=== PATIENT | female | born 1995 | race African-American/Black ===

== ENCOUNTER 2023-03-23 08:15 | Outpatient (AMB) | payer OTHER, SELFPAY ==
[2023-03-23 08:16] VITALS: BP 108/70; BMI 35.9
--- NOTE | 2023-03-23 08:16 | MHC.PC.OV ---
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 Intake Note: New patient establishing care Furnace Liner Required: No Accompanied by: Self / Same As Patient Allergies No Known Allergies [No Known Allergies*] Allergy (Verified 03/23/23 08:27) Medication List - Last Reconciled 03/23/23 by Selene Napoles MD benztropine mg PO hydroxyzine HCl 25 mg PO TID lithium carbonate mg PO paliperidone palmitate (Invega Sustenna) mg IM trazodone 100 mg PO BEDTIME PRN Tobacco use date assessed: 03/23/23 Dental Screening Dental Screen Date: 03/23/23 Did you have a dental visit in the last 12 months?: Yes Did you have a dental problem in the last 6 months where you did not have access to dental care?: No Was dental information given to patient?: Patient has dentist HPI HPI Comments History of Present Illness Details This is a 27-year-old female with bipolar depression that comes for her physical exam. She follows with [facility] in [place]. No chest pain or shortness of breath. Compliant with medications. She is obese with a BMI of 35.9 and was advised to do diet and exercise to reach BMI goal less than 30. [facility] Surgical History History of Family History (Updated 03/23/23 @ 08:33 by Selene Napoles MD) Mother Mental health disorder Father No problems noted. Family/Other Substance use disorder Sister Diabetes mellitus Social History Housing: House Alcohol intake: former Patient Tobacco Use Status: Former Tobacco user Tobacco use type: Cigarette Smoked in Last 30 Days: No e-Cigarette/Vaping Use: Currently Using Second Hand Smoke Exposure: No service: No Current occupational status: unemployed Cognitive needs: No Hearing needs: No Vision needs: No Questionnaire PHQ-9 Over the last 2 weeks, how often have you been bothered by any of the following problems? 1. Little interest or pleasure in doing things: several days 2. Feeling down, depressed, or hopeless: several days 3. Trouble falling or staying asleep, or sleeping too much: not at all 4. Feeling tired or having little energy: nearly every day 5. Poor appetite or overeating: several days 6. Feeling bad about yourself - or that you are a failure or have let yourself or your family down: several days 7. Trouble concentrating on things, such as reading the newspaper or watching television: more than half the days 8. Moving or speaking so slowly that other people could have noticed. Or the opposite - being so fidgety or restless that you have been moving around a lot more than usual: not at all 9. Thoughts that you would be better off or of hurting yourself in some way: not at all Total score: 9 Depression Screening Interpretation: Positive Depression Screening Follow-up: Existing condition, In treatment and Community Mental Health Worker F/U Depression Screening Done: Yes 90664 - PHQ-9 Billing: Yes Source: Developed by Drs. Stephen Benitez, Melinda Moreno, Kp Ly and colleagues, with an educational daljit from [employer]. Thrive Questionnaire Date Thrive assessed: 03/23/23 I am a: Patient What is your living situation today?: I have a steady place to live Within the past 12 months, did the food you bought not last and you didn't have the money to get more?: Never true Within the past 12 months, did you worry whether your food would run out before you got money to buy more?: Never true Do you have trouble paying for medicines?: No Do you have trouble getting transportation to medical appointments?: No Do you have trouble paying your heating and electricity bill?: No Do you have trouble taking care of your child, family member or friend?: No Do you have trouble with day-to-day activities such as bathing, preparing meals, shopping, managing finances, etc.?: No Are you currently unemployed and looking for a job?: No Are you interested in more education?: No Please select the resources that you would like help with: None Currently or been in a relationship where the following occur: no concerns reported AUDIT C Alcohol Use Questionnaire (AUDIT-C) 1. How often do you have a drink containing alcohol?: Never Total Score: 0 Score Reviewed/Action Taken: No LAWRENCE-7 AMB Questionnaire LAWRENCE-7 Date LAWRENCE - 7 assessed: 03/23/23 Feeling nervous, anxious, or on edge: 0 = Not at all Not being able to stop or control worryin = Not at all Worrying too much about different things: 1 = Several days Trouble relaxin = Not at all Being so restless that it is hard to sit still: 0 = Not at all Becoming easily annoyed or irritable: 1 = Several days Feeling afraid as if something awful might happen: 0 = Not at all Total LAWRENCE-7 score (0-4 normal; 5-9 mild; 10-14 moderate; 15-21 severe): 2 Source: Developed by Drs. Stephen Benitez, Melinda Moreno, Kp Ly and colleagues, with an educational daljit from [employer]. LAWRENCE-7 Assessment Billing LAWRENCE-7 Assessment Tool: LAWRENCE-7 Assessment 26542 Review of Systems Const All systems reviewed & are unremarkable except as noted in HPI and below Eyes Reports no additional complaints, Denies change in vision and Denies other visual disturbances Card Denies chest pain at rest, Denies chest pain with activity, Denies edema, Denies irregular heart rhythm, Denies claudication, Denies dyspnea, Denies dyspnea on exertion, Denies orthopnea, Denies paroxysmal nocturnal dyspnea and Denies slow heart rate Resp Denies cough, Denies dyspnea and Denies dyspnea on exertion GI Denies abdominal pain, Denies change in bowel habits, Denies excessive flatus, Denies nausea and Denies vomiting Denies urinary incontinence, Denies urinary hesitancy and Denies urinary urgency Musc Denies abnormal gait, Denies atrophy, Denies deformity and Denies limited range of motion Skin/Breast Denies bleeding lesions, Denies changing lesions and Denies rash Neuro Denies abnormal gait, Denies behavioral changes, Denies confusion and Denies lack of coordination Psych Denies behavioral changes and Denies confusion Physical exam (Primary Care) Vital Signs: Last Vital Signs BP 108/70 03/23/23 08:16 BMI result Body Mass Index 35.9 Tobacco/Smoking Status: Tobacco use Status Tobacco use date assessed 03/23/23 03/23/23 08:25 Patient Tobacco Use Status Former Tobacco user 03/23/23 08:25 Tobacco use type Cigarette 03/23/23 08:25 e-Cigarette/Vaping Use Currently Using 03/23/23 08:25 PHQ-9: PHQ-9 Score PHQ-9: Total score 9 03/23/23 08:35 Depression Screening Interpretation: Positive Depression Screening Follow-up: Existing condition, In treatment and Community Mental Health Worker F/U Thrive Assessment: Date of Thrive Assessment Date Thrive assessed 03/23/23 03/23/23 08:25 Currently or been in a relationship where the following occur: no concerns reported Const General: No confusion Orientation/consciousness: patient oriented x3 and No confusion HENMT Head: Yes normal to inspection, Yes normocephalic and Yes atraumatic Ears: external ears normal Eyes General: appearance normal, both eyes and all related structures Eyelids: Yes eyelids normal Conjunctivae: conjunctivae normal Neck Neck: Yes normal visual inspection and Yes supple Resp Effort & Inspection: normal respiratory effort Auscultation: clear to auscultation bilaterally Cardio Jugular venous distension: no JVD Rate: regular rate Rhythm: regular rhythm Heart sounds: S1 normal heart sound present and S2 normal heart sound present GI Inspection: Yes normal to inspection Palpation (GI): Soft to palpation and nontender Auscultation: normal bowel sounds Skin General skin exam: no rashes or lesions noted Neuro General: patient oriented x3, no focal motor deficits and No confusion Extrem General: Yes full ROM Psych Appearance: grossly normal Office Procedures Flu Questionnaire Does the patient have a severe egg allergy?: No Immunizations flu vacc [id number] 6mos up(PF) 60 mcg(15 mcgx4)/0.5 mL IM syringe Performing Provider: Selene Napoles MD Performing Location: [facility] [place] [facility] Documented (not given) by: LYNDA Hernadez on 03/23/23 08:36 Reason Not Given: Not Given Boostrix Tdap 2.5 Lf unit-8 mcg-5 Lf/0.5 mL intramuscular syringe Performing Provider: Selene Napoles MD Performing Location: [facility] [place] [facility] Administered by: LYNDA Hernadez on 03/23/23 08:42 Dose Route Admin Location Dispensed Lot Number Expiration Date NDC Rx Specialist 0.5 mL IM Left Deltoid 0.5 mL [id number] 07/09/25 31635-787-31 [employer] VIS Given Date VIS Provided VIS Publication Date 03/23/23 Single Vaccine 20 Eligibility Eligibility Date Funding Source Not [facility] Eligible 03/23/23 Private Assessment and Plan Assessment & Plan (1) Physical exam: Code(s): Z00.00 - Encounter for general adult medical examination without abnormal findings Plan: Repeat in a year. (2) Bipolar depression: Code(s): F31.9 - Bipolar disorder, unspecified Plan: Continue lithium. Follow-up with psychiatry. Orders: Orders Influenza [id number] Immunization Today Z23 - Encounter for immunization [place] Today F31.9 - Bipolar disorder, unspecified Lipid Panel Today E66.9 - Obesity, unspecified, E78.5 - Hyperlipidemia, unspecified Comprehensive [place]. Panel Fast Today E66.9 - Obesity, unspecified TDaP Immunization Today Z23 - Encounter for immunization Thyroid Stimulating Hormone Today E66.9 - Obesity, unspecified Complete Blood Count Auto Diff Today E66.9 - Obesity, unspecified Coding Level of Care Code New Pt Prev Care 18-39yr([id number] Diagnoses Physical exam Z00.00 Bipolar depression F31.9 Additional Codes LAWRENCE-7 Assessment Billing - LAWRENCE-7 Assessment Tool: LAWRENCE-7 Assessment 10117 ([id number]) Time Spent (min) 31
== END 2023-03-23 08:49 | disposition home or self-care (01) ==
PROVIDERS: PCP Internal Medicine; Visit Provider Internal Medicine
DX: Z23 Encounter for immunization (principal); Z00.00 Encounter for general adult medical examination without abnormal findings; F31.9 Bipolar disorder, unspecified
CPT/HCPCS: 90471; 90472; 90686; 90715; 99385

== ENCOUNTER 2024-01-27 14:19 | Outpatient (AMB) | payer OTHER, SELFPAY ==
[2024-01-27 14:25] VITALS: BP 126/72; PULSE 79; O2SAT 98; BMI 34.5
--- NOTE | 2024-01-27 14:25 | MHC.PC.OV ---
Vital Signs 01/27/24 14:25 Height 5 ft 7 in Weight 220 lb BMI 34.5 BP 126/72 Blood Pressure Location Lt brachial Position Sitting Pulse 79 Pulse Source Pulse Oximeter Pulse Oximetry (%) 98 Oxygen Delivery Method Room Air Intake Visit Reasons: Rsched from 01/24- Hand Rash --Insurance is active Physician/Ophthalmologist Required: No Accompanied by: Self / Same As Patient Allergies No Known Allergies [No Known Allergies*] Allergy (Verified 01/27/24 14:25) Medication List - Last Reconciled 01/27/24 by Leida Sanders PA-C benztropine mg PO hydroxyzine HCl 25 mg PO TID lithium carbonate mg PO paliperidone palmitate (Invega Sustenna) mg IM trazodone 100 mg PO BEDTIME PRN triamcinolone acetonide 0.5% 1 appl topical BID Tobacco use date assessed: 03/23/23 Dental Screening Dental Screen Date: 03/23/23 HPI Rsched from 01/24- Hand Rash --Insurance is active HPI Details 28-year-old female past medical history of bipolar depression last seen by Dr. Dietz March 2023 coming in for acute problem. Patient states for the last 2 weeks she has been having a dry irritated hand rash on both hands. Initially it began when she burned herself on hot water in the rash appeared afterwards since spread to both hands. She has been using lotion intermittently for the rash. She also mentioned for several months she has been having left-sided knee pain primarily when walking up the stairs and sometimes feels like her knee is unsteady and may give out on her. [facility] Surgical History History of Family History (Updated 03/23/23 @ 08:33 by Selene Napoles MD) Mother Mental health disorder Father No problems noted. Family/Other Substance use disorder Sister Diabetes mellitus Social History Housing: House Alcohol intake: former Patient Tobacco Use Status: Former Tobacco user Tobacco use type: Cigarette e-Cigarette/Vaping Use: Currently Using Second Hand Smoke Exposure: No service: No Current occupational status: unemployed Cognitive needs: No Hearing needs: No Vision needs: No Questionnaire Thrive Questionnaire Date Thrive assessed: 03/23/23 LAWRENCE-7 AMB Questionnaire LAWRENCE-7 Date LAWRENCE - 7 assessed: 03/23/23 Source: Developed by Drs. Stephen Benitez, Melinda Moreno, Kp Ly and colleagues, with an educational daljit from [employer]. Review of Systems Const Denies body aches, Denies chills and Denies fever(s) Eyes Reports no additional complaints ENT Reports no additional complaints Card Denies chest pain, Denies leg edema, Denies lightheadedness and Denies dyspnea Resp Denies dyspnea GI Reports no additional complaints Reports no additional complaints Musc Details: Left knee pain Skin/Breast Reports as per HPI Physical exam (Primary Care) Vital Signs: Last Vital Signs Pulse 79 01/27/24 14:25 BP 126/72 01/27/24 14:25 Pulse Ox 98 01/27/24 14:25 Oxygen Delivery Method Room Air 01/27/24 14:25 BMI result Body Mass Index 34.5 Tobacco/Smoking Status: Tobacco use Status Tobacco use date assessed 03/23/23 01/27/24 14:29 Patient Tobacco Use Status Former Tobacco user 01/27/24 14:29 Tobacco use type Cigarette 01/27/24 14:29 e-Cigarette/Vaping Use Currently Using 01/27/24 14:29 Thrive Assessment: Date of Thrive Assessment Date Thrive assessed 03/23/23 01/27/24 14:29 Const General: cooperative, healthy appearing, comfortable and no acute distress Orientation/consciousness: patient oriented x3 HENMT Head: Yes normocephalic Ears: hearing grossly normal bilaterally General nose exam: Normal external nose present Eyes General: appearance normal, both eyes and all related structures Conjunctivae: conjunctivae normal Neck Neck: Yes full ROM and Yes no lymphadenopathy Resp Effort & Inspection: normal respiratory effort Auscultation: clear to auscultation bilaterally, no crackles, no rales, no rhonchi and no wheezes Cardio Rate: regular rate Rhythm: regular rhythm Skin Other: Dry, thickened, scaly rash dorsal aspect of bilateral hands without areas of open skin General skin exam: no rashes or lesions noted Neuro General: patient oriented x3 Gait exam (Neuro): Normal gait present Extrem Other: No pain to palpation over left knee. Intact strength, sensation and pulses in bilateral lower extremities General: Yes normal to inspection, Yes full ROM and No edema Psych Affect: normal affect Attitude: cooperative Insight: Good insight present (Psych) Judgement: Good judgement present (Psych) Coding Level of Care Code Est Pt Level 3 (30682) Diagnoses Left knee pain M25.562 Obesity (BMI 35.0-39.9 without comorbidity) E66.9 Dermatitis L30.9 Assessment & Plan Assessment & Plan (1) Left knee pain: Code(s): M25.562 - Pain in left knee Category: Medical Plan: Patient complaining of left knee pain that feels occasionally on stable we will order for x-ray for further evaluation. Declines physical therapy at this time advised to use ibuprofen and Tylenol as needed for pain. (2) Obesity (BMI 35.0-39.9 without comorbidity): Code(s): E66.9 - Obesity, unspecified Category: Medical Plan: Healthy diet and regular exercise is encouraged. (3) Dermatitis: Code(s): L30.9 - Dermatitis, unspecified Category: Medical Plan: Rash looks consistent with atopic dermatitis. Advised patient to use steroid cream 1-2 times per day until the rash clears or up until 2 weeks. Advised patient to use Vaseline or Aquaphor on the hands at night to help moisturize. If rash worsens or does not improve we will refer to Dermatology. Plan This note was constructed using voice recognition software. While every effort has been made to ensure accuracy and driver education road instructor, still areas may have been included sometimes these areas may affect the content or meeting of the given symptoms. Total time spent caring for the patient today was twenty minutes. This includes time spent before the visit reviewing the chart, time spent during the visit, and time spent after the visit and documentation. Orders: Orders XR knee LT 3V Today M25.562 - Pain in left knee Medications: New triamcinolone acetonide 0.5% 1 appl topical BID 15 grams 1RF
== END 2024-01-27 14:55 | disposition home or self-care (01) ==
PROVIDERS: PCP Internal Medicine
DX: M25.562 Pain in left knee (principal); E66.9 Obesity, unspecified; L30.9 Dermatitis, unspecified; Z68.34 Body mass index [BMI] 34.0-34.9, adult

== ENCOUNTER → 2024-01-27 14:19 | Outpatient (BNVA) | payer OTHER, SELFPAY | PROVIDERS: PCP Internal Medicine | DX: M25.562 Pain in left knee (principal); E66.9 Obesity, unspecified; L30.9 Dermatitis, unspecified | CPT/HCPCS: 99212 ==

== ENCOUNTER 2024-03-24 14:02 | Outpatient (AMB) | payer OTHER, SELFPAY ==
[2024-03-24 14:14] VITALS: BP 116/80; BMI 34.1
--- NOTE | 2024-03-24 14:14 | A.OFFPC_ITS ---
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 Accompanied by: Self / Same As Patient Allergies No Known Allergies [No Known Allergies*] Allergy (Verified 03/24/24 14:42) Medication List - Last Reconciled 03/24/24 by Selene Napoles MD benztropine mg PO hydroxyzine HCl 25 mg PO TID lithium carbonate mg PO quetiapine 50 mg PO BEDTIME quetiapine ER 400 mg PO BEDTIME Tobacco use date assessed: 03/24/24 Dental Screening Dental Screen Date: 03/24/24 Did you have a dental visit in the last 12 months?: Yes Did you have a dental problem in the last 6 months where you did not have access to dental care?: No Was dental information given to patient?: Patient has dentist HPI HPI Comments History of Present Illness Details The patient is a 28-year-old female presenting for her physical exam. She has a complex medical history including bipolar disorder, psychosis, obesity, abdominal pain, back pain, and knee pain. The patient is currently on benztropine, hydroxyzine, lithium, and Seroquel for mental health management. The Seroquel is acknowledged to contribute to increased hunger, making weight loss challenging. Despite this, the patient has successfully lost weight from approximately 240 lbs to 218 lbs, primarily through fasting. Abdominal pain has been persistent, though sporadic, and is undefined in relation to meals or specific activities. Back pain is localized to the lower back, occurring independently of leg pain, and is not consistently provoked by activity. Knee pain is noted on the left side. The onset of severe pain episodes began a few years ago. The patient has a history of but denies chest pain and shortness of breath. A family history of bipolar disorder is noted. The patient reports depression, anxiety, and instances of asthma managed with cream acquired from urgent care visits. The patient is up-to-date with vaccinations, having received a Tdap vaccine last year, and an upcoming OBGYN appointment is scheduled for April. The patient smokes vapes and reports cessation of traditional smoking. - Weight management through fasting and cycling. - Up-to-date with Tdap vaccination (last year). - Scheduled Pap smear appointment in Apr ru. - Discussed use of regular hand lotion f or dry skin. [facility] Surgical History History of Family History Mother Mental health disorder Father No problems noted. Family/Other Substance use disorder Sister Diabetes mellitus Social History Housing: House Alcohol intake: former Patient Tobacco Use Status: Former Tobacco user Tobacco use type: Cigarette e-Cigarette/Vaping Use: Currently Using Second Hand Smoke Exposure: No service: No Current occupational status: unemployed Cognitive needs: No Hearing needs: No Vision needs: No Questionnaire PHQ-9 Over the last 2 weeks, how often have you been bothered by any of the following problems? 1. Little interest or pleasure in doing things: several days 2. Feeling down, depressed, or hopeless: several days 3. Trouble falling or staying asleep, or sleeping too much: several days 4. Feeling tired or having little energy: several days 5. Poor appetite or overeating: several days 6. Feeling bad about yourself - or that you are a failure or have let yourself or your family down: several days 7. Trouble concentrating on things, such as reading the newspaper or watching television: not at all 8. Moving or speaking so slowly that other people could have noticed. Or the opposite - being so fidgety or restless that you have been moving around a lot more than usual: not at all 9. Thoughts that you would be better off or of hurting yourself in some way: several days Total score: 7 Depression Screening Interpretation: Positive Depression Screening Follow-up: Existing condition, In treatment, Community Mental Health Worker F/U and Follow- up Visit Requested Depression Screening Done: Yes 50271 - PHQ-9 Billing: Yes Source: Developed by Drs. Stephen Benitez, Melinda Moreno, Kp Ly and colleagues, with an educational daljit from [employer]. Thrive Questionnaire Date Thrive assessed: 03/24/24 I am a: Patient What is your living situation today?: I have a steady place to live Within the past 12 months, did the food you bought not last and you didn't have the money to get more?: Sometimes True Within the past 12 months, did you worry whether your food would run out before you got money to buy more?: Sometimes True Do you have trouble paying for medicines?: No Do you have trouble getting transportation to medical appointments?: No Do you have trouble paying your heating and electricity bill?: No Do you have trouble taking care of your child, family member or friend?: I choose not to answer this question Do you have trouble with day-to-day activities such as bathing, preparing meals, shopping, managing finances, etc.?: No Are you currently unemployed and looking for a job?: No Are you interested in more education?: I choose not to answer this question Please select the resources that you would like help with: Housing/Detention Currently or been in a relationship where the following occur: I choose not to answer THRIVE Score: 2 AUDIT C Alcohol Use Questionnaire (AUDIT-C) 1. How often do you have a drink containing alcohol?: Monthly or less 2. How many drinks containing alcohol do you have on a typical day when you are drinking?: 1 or 2 3. How often do you have six or more drinks on one occasion?: Never Total Score: 1 LAWRENCE-7 AMB Questionnaire LAWRENCE-7 Date LAWRENCE - 7 assessed: 03/24/24 Feeling nervous, anxious, or on edge: 1 = Several days Not being able to stop or control worryin = Not at all Worrying too much about different things: 2 = More than half the days Trouble relaxin = More than half the days Being so restless that it is hard to sit still: 2 = More than half the days Becoming easily annoyed or irritable: 2 = More than half the days Feeling afraid as if something awful might happen: 2 = More than half the days Total LAWRENCE-7 score (0-4 normal; 5-9 mild; 10-14 moderate; 15-21 severe): 11 Source: Developed by Drs. Stephen Benitez, Melinda Moreno, Kp Ly and colleagues, with an educational daljit from [employer]. LAWRENCE-7 Assessment Billing LAWRENCE-7 Assessment Tool: LAWRENCE-7 Assessment 38626 Review of Systems Const All systems reviewed & are unremarkable except as noted in HPI and below Card Denies chest pain at rest, Denies chest pain with activity, Denies edema, Denies irregular heart rhythm, Denies claudication, Denies dyspnea, Denies dyspnea on exertion, Denies orthopnea, Denies paroxysmal nocturnal dyspnea and Denies slow heart rate Resp Denies cough, Denies dyspnea and Denies dyspnea on exertion GI Denies abdominal pain, Denies change in bowel habits, Denies excessive flatus, Denies nausea and Denies vomiting Denies urinary incontinence, Denies urinary hesitancy and Denies urinary urgency Musc Reports back pain and Reports arthralgias Psych Reports anxiety and Reports depression Physical exam (Primary Care) Vital Signs: Last Vital Signs BP 116/80 03/24/24 14:14 BMI result Body Mass Index 34.1 BMI Assessment/Plan discussion: High BMI High, discussed plan: lifestyle, weight reduction, dietary and physical activity Tobacco/Smoking Status: Tobacco use Status Tobacco use date assessed 03/24/24 03/24/24 14:25 Patient Tobacco Use Status Former Tobacco user 03/24/24 14:18 Tobacco use type Cigarette 03/24/24 14:18 e-Cigarette/Vaping Use Currently Using 03/24/24 14:18 PHQ-9: PHQ-9 Score PHQ-9: Total score 7 03/24/24 14:44 Depression Screening Interpretation: Positive Depression Screening Follow-up: Existing condition, In treatment, Community Mental Health Worker F/U and Follow- up Visit Requested Thrive Assessment: Date of Thrive Assessment Date Thrive assessed 03/24/24 03/24/24 14:25 Currently or been in a relationship where the following occur: I choose not to answer [facility] Head: Yes normal to inspection, Yes normocephalic and Yes atraumatic Ears: external ears normal Eyes General: appearance normal, both eyes and all related structures Eyelids: Yes eyelids normal Conjunctivae: conjunctivae normal Neck Neck: Yes normal visual inspection and Yes supple Resp Effort & Inspection: normal respiratory effort Auscultation: clear to auscultation bilaterally Cardio Jugular venous distension: no JVD Rate: regular rate Rhythm: regular rhythm Heart sounds: S1 normal heart sound present and S2 normal heart sound present GI Inspection: Yes normal to inspection Palpation (GI): Soft to palpation and nontender Auscultation: normal bowel sounds Skin General skin exam: no rashes or lesions noted Neuro General: no focal motor deficits Extrem General: Yes full ROM Psych Appearance: grossly normal Office Procedures Flu Questionnaire Does the patient have a severe egg allergy?: No Immunizations Fluarix Triv [id number] (PF) 45 mcg (15 mcg x 3)/0.5 mL IM syringe Performing Provider: Selene Napoles MD [facility] Documented (not given) by: LYNDA Hernadez on 03/24/24 14:26 Reason Not Given: Patient Refused Coding Level of Care Code Est Pt Level 4 (48634) Est Pt Prev Care 18-39y(41999) Diagnoses Physical exam Z00.00 Bipolar depression F31.9 Psychosis F29 Abdominal pain R10.9 Lumbar pain M54.50 Left knee pain M25.562 Additional Codes LAWRENCE-7 Assessment Billing - LAWRENCE-7 Assessment Tool: LAWRENCE-7 Assessment 15395 ([id number]) PHQ-9 - 85923 - PHQ-9 Billing: Yes ([id number]) Time Spent (min) 38 Assessment & Plan Assessment & Plan (1) Physical exam: Code(s): Z00.00 - Encounter for general adult medical examination without abnormal findings Category: Medical (2) Bipolar depression: Code(s): F31.9 - Bipolar disorder, unspecified Category: Medical (3) Psychosis: Code(s): F29 - Unspecified psychosis not due to a substance or known physiological condition Category: Medical (4) Abdominal pain: Code(s): R10.9 - Unspecified abdominal pain Category: Medical (5) Lumbar pain: Code(s): M54.50 - Low back pain, unspecified Category: Medical (6) Left knee pain: Code(s): M25.562 - Pain in left knee Category: Medical Plan - Continue psychiatric medications as prescribed by psychiatry. - Recommend x-rays of the lower back and left knee to assess pain. - Order an ultrasound of the abdomen to evaluate unexplained pain. - Obtain blood work to assess cholesterol and glucose levels, requiring 8-hour fasting prior. - Advise the patient on glucose and cholesterol monitoring related to overall wellness and weight management. - Discussed potential link between vaping and throat irritation. Patient was informed and verbally consented to the use of an ambient scribe for clinic note documentation during this visit. I discussed with the patient the importance of maintaining current psychiatric treatment and acknowledged her weight loss efforts. We talked about the potential effects of Seroquel on hunger and weight gain. I recommended obtaining x-rays for both the lower back and the left knee to explore the origin of the pain and ordered an abdominal ultrasound due to unresolved abdominal discomfort. I clarified the need for fasting blood work to evaluate lipid and glucose levels, emphasizing the importance of monitoring these parameters given the patient's medical history and weight changes. We also talked about the throat irritation likely linked to vaping and suggested reducing exposure. Orders: Orders Influenza [id number] Immunization Today Z23 - Encounter for immunization XR lumbar spine 2-3V Today M54.50 - Low back pain, unspecified XR knee LT 2V Today M25.562 - Pain in left knee Thyroid Stimulating Hormone Today F31.9 - Bipolar disorder, unspecified US abdomen complete Today R10.9 - Unspecified abdominal pain Comprehensive Tyler. Panel Fast Today Z00.00 - Encounter for general adult medical examination without abnormal findings Lipid Panel Today Z00.00 - Encounter for general adult medical examination without abnormal findings Complete Blood Count Auto Diff Today R10.9 - Unspecified abdominal pain Patient Instructions: - Continue prescribed psychiatric medications consistently. - Proceed with ordered x-rays and ultrasound within the next three months. - Schedule blood work after an 8-hour fasting period. - Use regular hand lotions to alleviate skin dryness. - Consider reducing or quitting vaping to alleviate throat irritation. - Return for follow-up discussions as needed. - Continue lifestyle modifications including cycling and fasting for weight management.
== END 2024-03-24 15:03 | disposition home or self-care (01) ==
PROVIDERS: PCP Internal Medicine; Visit Provider Internal Medicine
DX: Z00.00 Encounter for general adult medical examination without abnormal findings (principal); F31.9 Bipolar disorder, unspecified; F29 Unspecified psychosis not due to a substance or known physiological condition; R10.9 Unspecified abdominal pain; M54.50 Low back pain, unspecified; M25.562 Pain in left knee

== ENCOUNTER → 2024-03-24 14:02 | Outpatient (BNVA) | payer OTHER, SELFPAY | PROVIDERS: PCP Internal Medicine; Visit Provider Internal Medicine | DX: Z00.00 Encounter for general adult medical examination without abnormal findings (principal); F31.9 Bipolar disorder, unspecified; E66.9 Obesity, unspecified; R10.9 Unspecified abdominal pain; M54.9 Dorsalgia, unspecified; F29 Unspecified psychosis not due to a substance or known physiological condition; M54.50 Low back pain, unspecified; M25.562 Pain in left knee; Z28.21 Immunization not carried out because of patient refusal | CPT/HCPCS: 96127; 99212; 99395 ==

== ENCOUNTER 2024-04-19 09:41 | Outpatient (REF) | payer OTHER, SELFPAY ==
--- NOTE | ~2024-04-19 | XR_ITS ---
CLINICAL HISTORY: M54.50 - Low back pain, unspecified 3 views lumbar spine Comparison: None Findings: There is mild straightening of the normal lumbar lordosis. No acute fractures or dislocation. No significant degenerative change. IMPRESSION: No acute findings. This document has been electronically signed by: Angel Akhtar MD, PHD on 04/20/2024 05:25:54
--- NOTE | ~2024-04-19 | XR_ITS ---
CLINICAL HISTORY: M25.562 - Pain in left knee 2 view left knee Comparison: None Findings: Bones intact. No dislocations. No significant loss of joint space, osteophytes, or erosions. No joint effusion. No radiopaque foreign body. IMPRESSION: 1. No acute findings. This document has been electronically signed by: Angel Akhtar MD, PHD on 04/20/2024 05:26:05
--- NOTE | ~2024-04-19 | US_ITS ---
CLINICAL HISTORY: R10.9 - Unspecified abdominal pain US abdomen complete Comparison: None Findings: Mildly prominent pancreatic duct measuring up to 3 mm. The aorta and inferior vena cava are normal caliber. Liver measures 16.7 cm in length and demonstrates increased echogenicity. There is no intrahepatic bile duct dilatation. The common duct is 3 mm in diameter. The gallbladder is normal. There is no sonographic James sign. The main portal vein is antegrade. The right kidney is 11 cm in length. The left kidney is 10 cm in length. Unremarkable kidneys without hydronephrosis. The spleen is normal. Spleen measures 9.5 cm in length. No ascites. IMPRESSION: Hepatic steatosis. Mild prominence of the pancreatic duct. This document has been electronically signed by: Merna Hanna MD on 04/20/2024 09:26:09
== END 2024-04-19 09:42 | disposition home or self-care (01) ==
LOC: HO.US 09:41
PROVIDERS: PCP Internal Medicine; Visit Provider Internal Medicine
DX: R10.9 Unspecified abdominal pain (principal); M54.50 Low back pain, unspecified; M25.562 Pain in left knee
CPT/HCPCS: 72100; 73560; 76700

== ENCOUNTER → 2024-04-19 09:45 | Outpatient (BNV) | payer OTHER, SELFPAY | PROVIDERS: PCP Internal Medicine; Visit Provider General Practice | DX: K76.0 Fatty (change of) liver, not elsewhere classified (principal); K86.89 Other specified diseases of pancreas; M54.50 Low back pain, unspecified; M25.562 Pain in left knee | CPT/HCPCS: 72100; 73560; 76700 ==

== ENCOUNTER 2024-08-05 11:58 | Outpatient (AMB) | payer OTHER, SELFPAY ==
--- NOTE | 2024-08-05 12:04 | A.OFFVIS_ITS ---
Vital Signs 08/05/24 12:17 Height 5 ft 7 in Weight 220 lb BMI 34.5 BP 116/62 Blood Pressure Location Rt brachial Position Sitting Pulse 78 Pulse Source Pulse Oximeter Pulse Oximetry (%) 98 Oxygen Delivery Method Room Air Intake Visit Reasons: SCHERER Intake Note: ESTABLISHED PATIENT for abd pain eval. Pt reminded of labs. No results currently. [facility]. Pt comments that she did report to [facility] to attempt to have them drawn, however; they did not receive the orders as intended. CC; C.O. epigastric pain, GERD, dysphagia, and mild CIC. Pt denies any additional sx. Pt reports onset within the last 1-2 years gradually. Has gotten worse over the last few months. Technician Preventative Medicine Required: No Accompanied by: Self / Same As Patient Allergies No Known Allergies [No Known Allergies*] Allergy (Verified 08/05/24 12:09) HPI HPI SCHERER: Details: 28-year-old female with past medical history of SCHERER, abdominal pain, dermatitis, bipolar, dilation of pancreatic duct is here today for initial consultation. Patient was sent to us by her PCP for elevation in her liver enzymes. Abdominal ultrasound was done in April that showed hepatic steatosis and prominence of pancreatic duct. Patient reports occasional epigastric pain, postprandial abdominal bloating, acid reflux. Patient is reporting that does symptoms are happening occasionally. Depending on what she eats. Patient denies any nausea or vomiting. Patient reports occasional dysphagia, dyspepsia without odynophagia. Reports to have occasional constipation. Denies any melena, hematochezia. Not on any particular diet at this time. [facility] Surgical History History of Family History Mother Mental health disorder Father No problems noted. Family/Other Substance use disorder Sister Diabetes mellitus Social History Housing: House Alcohol intake: former Patient Tobacco Use Status: Former Tobacco user Tobacco use type: Cigarette e-Cigarette/Vaping Use: Currently Using Second Hand Smoke Exposure: No service: No Current occupational status: unemployed Cognitive needs: No Hearing needs: No Vision needs: No Review of Systems Const Denies weight gain and Denies weight loss ENT Reports no additional complaints, Denies dysphagia and Denies odynophagia Card Reports no additional complaints Resp Reports no additional complaints GI Reports abdominal pain, Denies belching, Denies melena, Reports bloating, Denies change in bowel habits, Reports constipation (Occasional), Denies dysphagia, Denies excessive flatus, Denies dyspepsia, Denies heartburn, Denies diarrhea, Denies loose stools, Denies nausea, Denies odynophagia and Denies vomiting Reports no additional complaints Musc Reports no additional complaints Neuro Reports no additional complaints Psych Reports no additional complaints Endo Reports no additional complaints Physical Exam Vital Signs: Last Vital Signs Pulse 78 08/05/24 12:17 BP 116/62 08/05/24 12:17 Pulse Ox 98 08/05/24 12:17 Oxygen Delivery Method Room Air 08/05/24 12:17 BMI result Body Mass Index 34.5 Const General: healthy appearing, no acute distress and well developed Nutritional Appearance: well nourished and obese Orientation/consciousness: patient oriented x3 Resp Effort & Inspection: normal respiratory effort, able to speak in complete sentences, no tracheal deviation and symmetric chest movement Auscultation: clear to auscultation bilaterally Cardio Rate: regular rate GI Inspection: Yes normal to inspection, No distended and Yes obesity Palpation (GI): Soft to palpation, not firm, nontender and No hepatosplenomegaly present Auscultation: normal bowel sounds General: Yes no CVA tenderness Back/Spine/Pelvis Back: no CVA tenderness Skin General skin exam: elasticity normal, turgor normal and dry skin Neuro General: patient oriented x3 Psych Appearance: grossly normal Mental Status: mental status grossly normal Results Reviewed Results Reviewed: ABDOMINAL ULTRASOUND 04/20/2024 Findings: Mildly prominent pancreatic duct measuring up to 3 mm. The aorta and inferior vena cava are normal caliber. Liver measures 16.7 cm in length and demonstrates increased echogenicity. There is no intrahepatic bile duct dilatation. The common duct is 3 mm in diameter. The gallbladder is normal. There is no sonographic James sign. The main portal vein is antegrade. The right kidney is 11 cm in length. The left kidney is 10 cm in length. Unremarkable kidneys without hydronephrosis. The spleen is normal. Spleen measures 9.5 cm in length. No ascites. IMPRESSION: Hepatic steatosis. Mild prominence of the pancreatic duct. Assessment & Plan Assessment & Plan (1) SCHERER (nonalcoholic steatohepatitis): Code(s): K75.81 - Nonalcoholic steatohepatitis (SCHERER) Category: Medical (2) Pancreatic duct dilated: Code(s): K86.89 - Other specified diseases of pancreas Category: Medical (3) Abdominal pain: Code(s): R10.9 - Unspecified abdominal pain Category: Medical Qualifiers: Abdominal location: epigastric Qualified Code(s): R10.13 - Epigastric pain (4) Constipation: Code(s): K59.00 - Constipation, unspecified Qualifiers: Constipation type: slow transit constipation Qualified Code(s): K59.01 - Slow transit constipation Plan Will order additional lab work. Patient will get transglutaminase, vitamin B12, folic, lipase, CMP, vitamin-D level. Discussed with patient avoiding dietary triggers in late night snacking. Staying upright for minimum 3 hours after meals discussed with patient. She will repeat ultrasound in 6 months will get ultrasound with elastography. Discussed with patient all FODMAP diet. List of food recommended as well as list of food to avoid given to patient. Patient will follow-up in 3-4 months, sooner on as needed basis. Patient is agreeable to current plan of care and verbalizes understanding of instructions. She was given the opportunity to ask questions and all questions answered. Thank you for allowing me to participate in her care Orders: Orders Transglutaminase IgA 08/05/24 R10.9 - Unspecified abdominal pain Vitamin B12 and Folate 08/05/24 R19.7 - Diarrhea, unspecified Lipase 08/05/24 R10.9 - Unspecified abdominal pain Comprehensive Met. Panel 08/05/24 K21.9 - Gastro-esophageal reflux disease without esophagitis Vitamin D 25-OH (D2 and D3) 08/05/24 E55.9 - Vitamin D deficiency, unspecified Coding Level of Care Code New Pt Level 3 (03766) Diagnoses SCHERER (nonalcoholic steatohepatitis) K75.81 Pancreatic duct dilated K86.89 Epigastric pain R10.13 Abdominal location: epigastric Slow transit constipation K59.01 Constipation type: slow transit constipation Time Spent (min) 40 Comment 30 minutes spent with patient and additional 10 minutes spent reviewing her records
[2024-08-05 12:17] VITALS: BP 116/62; PULSE 78; O2SAT 98; BMI 34.5
== END 2024-08-05 12:41 | disposition home or self-care (01) ==
LOC: HO.HGI 11:59
PROVIDERS: PCP Internal Medicine; Visit Provider Nurse Practitioner Family
DX: K75.81 Nonalcoholic steatohepatitis (NASH) (principal); K86.89 Other specified diseases of pancreas; R10.13 Epigastric pain; K59.01 Slow transit constipation
CPT/HCPCS: 99203

== ENCOUNTER 2024-08-05 11:58 | Outpatient (REF) | payer OTHER, SELFPAY ==
[2024-08-05 12:57] LABS: MANUAL DIFF FLAG NO
[2024-08-05 13:51] LABS: Basophils Absolute Auto 0.1 X10*3/uL (0.0-0.2); Basophils Percent Auto 0.6 % (0-2); Eosinophils Absolute Auto 0.2 X10*3/uL (0.0-0.4); Eosinophils Percent Auto 1.8 % (0-4); Hematocrit 38.9 % (37.0-47.0); Hemoglobin 12.9 g/dl (12.0-16.0); Imm Gran Abs Auto 0.03 X10*3/uL (0.00-0.03); Imm Gran Pct Auto 0.4 % (0.0-0.4); Lymphocytes Absolute Auto 3.4 X10*3/uL (1.2-4.9); Lymphocytes Percent Auto 41.3 % (20-40); Mean Corpuscular HGB Conc 33.2 g/dl (31.0-35.0); Mean Corpuscular Hemoglobin 28.3 pg (27.0-33.0); Mean Corpuscular Volume 85.3 fL (80.0-98.0); Mean Platelet Volume 10.6 fL (9.4-12.3); Monocytes Absolute Auto 0.7 X10*3/uL (0.1-1.2); Monocytes Percent Auto 8.8 % (2-11); Neutrophils Absolute Auto 3.9 x10*3/uL (2.0-8.3); Neutrophils Percent Auto 47.1 % (45-73); Platelet Count 280 X10*3/uL (160-400); Red Blood Count 4.56 X10*6/uL (4.20-5.50); Red Cell Distribution Width 14.3 % (11.0-16.0); White Blood Count 8.3 X10*3/uL (4.8-10.8)
[2024-08-05 14:20] LABS: Alanine Aminotransferase 19 U/L (0-31); Albumin Level 4.4 g/dL (3.5-5.0); Alkaline Phosphatase 100 U/L (39-117); Anion Gap 7 (12-20); Aspartate Amino Transferase 18 U/L (5-31); Bilirubin Total 0.3 mg/dL (0.0-1.0); Blood Urea Nitrogen 11 mg/dL (9-16); Calcium 9.6 mg/dL (8.4-10.2); Carbon Dioxide 25 mmol/L (22-29); Chloride 110 mmol/L (96-108); Cholesterol 192 mg/dL (<200); Estimated Glomerular Filt Rate > 60; Glucose Random 93 mg/dL (60-115); HDL Cholesterol 50 mg/dL (>40); LDL Cholesterol Calculated 132 mg/dL (<100); Lipase 18 U/L (8-78); Potassium 4.4 mmol/L (3.3-5.1); Sodium 138 mmol/L (135-145); Total Protein 7.5 g/dL (6.5-8.0); Triglycerides 51 mg/dL (<150)
[2024-08-05 14:34] LABS: Thyroid Stimulating Hormone 0.91 uIU/mL (0.32-4.0)
[2024-08-05 14:48] LABS: Folate 9.9 ng/mL (> or = 4.0); Vitamin B12 794 pg/mL (200-900)
[2024-08-09 15:24] LABS: Vitamin D 25-OH, D2 <4 ng/mL; Vitamin D 25-OH, D3 31 ng/mL; Vitamin D 25-OH, Total 31 ng/mL (30-100)
[2024-08-09 21:38] LABS: Transglutaminase IgA <1.0 U/mL
== END 2024-08-05 11:59 | disposition home or self-care (01) ==
LOC: HO.LAB 11:58
PROVIDERS: PCP Internal Medicine; Visit Provider Nurse Practitioner Family
DX: Z00.00 Encounter for general adult medical examination without abnormal findings (principal); K75.81 Nonalcoholic steatohepatitis (NASH); K86.89 Other specified diseases of pancreas; R10.13 Epigastric pain; K59.01 Slow transit constipation; R19.7 Diarrhea, unspecified; K21.9 Gastro-esophageal reflux disease without esophagitis; R10.9 Unspecified abdominal pain; E55.9 Vitamin D deficiency, unspecified; F31.9 Bipolar disorder, unspecified
CPT/HCPCS: 36415; 80053; 80061; 82306; 82607; 82746; 83690; 84443; 85025; 86364; 99202

== ENCOUNTER 2024-10-31 16:41 | Outpatient (AMB) | payer OTHER, SELFPAY ==
--- NOTE | 2024-10-31 16:43 | MHC.PC.OV ---
Vital Signs 10/31/24 16:45 Height 5 ft 7 in Weight 209 lb BMI 32.7 BP 110/56 L Blood Pressure Location Lt brachial Position Sitting Pulse 58 Pulse Source Pulse Oximeter Pulse Oximetry (%) 99 Oxygen Delivery Method Room Air Intake Visit Reasons: foot pain - follow up Retail Banking Manager Required: No Accompanied by: Self / Same As Patient Allergies No Known Allergies (No Known Allergies*) Allergy (Verified 10/31/24 16:53) Medication List - Last Reconciled 10/31/24 by Selene Napoles MD benztropine mg PO hydroxyzine HCl 50 mg PO TID lithium carbonate mg PO quetiapine 50 mg PO BEDTIME quetiapine ER 400 mg PO BEDTIME trazodone 50 mg PO BEDTIME PRN Tobacco use date assessed: 10/31/24 Dental Screening Dental Screen Date: 10/31/24 Did you have a dental visit in the last 12 months?: Yes Did you have a dental problem in the last 6 months where you did not have access to dental care?: No Was dental information given to patient?: Patient has dentist HPI HPI Comments History of Present Illness Details The patient is a 28-year-old female presenting with plantar fasciitis. The condition has been present for several months, with daily pain experienced upon waking and placing her feet on the ground. The pain decreases as the day progresses and she begins to walk. The patient has been advised to perform exercises using a cylindrical object to alleviate the inflammation associated with plantar fasciitis. She has been instructed to perform these exercises nightly, approximately 80 to 100 times, to prevent morning pain. If the exercises do not provide relief, a referral to podiatry for further management, including possible injections, has been discussed. The patient also has a history of bipolar disorder, for which she is currently taking benztropine, hydroxyzine, lithium, Seroquel, and trazodone. She is followed by psychiatry for this condition. [facility] Surgical History History of Family History Mother Mental health disorder Father No problems noted. Family/Other Substance use disorder Sister Diabetes mellitus Social History Housing: House Alcohol intake: former Patient Tobacco Use Status: Former Tobacco user Tobacco use type: Cigarette e-Cigarette/Vaping Use: Currently Using Second Hand Smoke Exposure: No service: No Current occupational status: unemployed Cognitive needs: No Hearing needs: No Vision needs: No Questionnaire Thrive Questionnaire Date Thrive assessed: 03/24/24 I am a: Patient What is your living situation today?: I have a steady place to live Within the past 12 months, did the food you bought not last and you didn't have the money to get more?: Sometimes True Within the past 12 months, did you worry whether your food would run out before you got money to buy more?: Sometimes True Do you have trouble paying for medicines?: No Do you have trouble getting transportation to medical appointments?: No Do you have trouble paying your heating and electricity bill?: No Do you have trouble taking care of your child, family member or friend?: I choose not to answer this question Do you have trouble with day-to-day activities such as bathing, preparing meals, shopping, managing finances, etc.?: No Are you currently unemployed and looking for a job?: No Are you interested in more education?: I choose not to answer this question Please select the resources that you would like help with: Housing/Jail Currently or been in a relationship where the following occur: I choose not to answer THRIVE Score: 2 LAWRENCE-7 AMB Questionnaire LAWRENCE-7 Date LAWRENCE - 7 assessed: 10/31/24 Source: Developed by Drs. Stephen Benitez, Melinda Moreno, Kp Ly and colleagues, with an educational daljit from [employer]. Review of Systems Const All systems reviewed & are unremarkable except as noted in HPI and below Card Denies chest pain at rest, Denies chest pain with activity, Denies edema, Denies irregular heart rhythm, Denies claudication, Denies dyspnea, Denies dyspnea on exertion, Denies orthopnea, Denies paroxysmal nocturnal dyspnea and Denies slow heart rate Resp Denies cough, Denies dyspnea and Denies dyspnea on exertion Physical exam (Primary Care) Vital Signs: Last Vital Signs Pulse 58 10/31/24 16:45 BP 110/56 L 10/31/24 16:45 Pulse Ox 99 10/31/24 16:45 Oxygen Delivery Method Room Air 10/31/24 16:45 BMI result Body Mass Index 32.7 BMI Assessment/Plan discussion: High BMI High, discussed plan: lifestyle, weight reduction, dietary and physical activity Tobacco/Smoking Status: Tobacco use Status Tobacco use date assessed 10/31/24 10/31/24 16:51 Patient Tobacco Use Status Former Tobacco user 10/31/24 16:51 Tobacco use type Cigarette 10/31/24 16:51 e-Cigarette/Vaping Use Currently Using 10/31/24 16:51 Thrive Assessment: Date of Thrive Assessment Date Thrive assessed 03/24/24 10/31/24 16:51 Currently or been in a relationship where the following occur: I choose not to answer Resp Effort & Inspection: normal respiratory effort Auscultation: clear to auscultation bilaterally Cardio Jugular venous distension: no JVD Rate: regular rate Rhythm: regular rhythm Heart sounds: S1 normal heart sound present and S2 normal heart sound present Extrem General: Yes full ROM Coding Level of Care Code Est Pt Level 3 (60022) Complex EM visit Add On G2211 Diagnoses Left foot pain M79.672 Bipolar depression F31.9 Time Spent (min) 19 Assessment & Plan Assessment & Plan (1) Left foot pain: Code(s): M79.672 - Pain in left foot Category: Medical (2) Bipolar depression: Code(s): F31.9 - Bipolar disorder, unspecified Category: Medical Plan The patient is advised to perform specific exercises using a cylindrical object to manage plantar fasciitis, aiming to reduce inflammation and prevent morning pain. These exercises should be done nightly, approximately 80 to 100 times. If the exercises do not alleviate the symptoms, a referral to podiatry will be considered for further evaluation and potential interventions such as injections. The patient's bipolar disorder is managed with medications, and she is under psychiatric care. Patient was informed and verbally consented to the use of an ambient scribe for clinic note documentation during this visit. Orders: Orders XR foot LT 2V Today M79.672 - Pain in left foot
[2024-10-31 16:45] VITALS: BP 110/56; PULSE 58; O2SAT 99; BMI 32.7
== END 2024-10-31 17:09 | disposition home or self-care (01) ==
LOC: HO.HMCH 16:42
PROVIDERS: PCP Internal Medicine; Visit Provider Internal Medicine
DX: M79.672 Pain in left foot (principal); F31.9 Bipolar disorder, unspecified

== ENCOUNTER → 2024-10-31 16:41 | Outpatient (BNVA) | payer OTHER, SELFPAY | PROVIDERS: PCP Internal Medicine; Visit Provider Internal Medicine | DX: M79.672 Pain in left foot (principal); M72.2 Plantar fascial fibromatosis; F31.9 Bipolar disorder, unspecified | CPT/HCPCS: 99212 ==